=== PATIENT | male | born 1970 | race Caucasian/White ===

== ENCOUNTER 2017-09-16 09:11 | Outpatient (CLI) | payer OTHER ==
--- NOTE | 2017-09-17 13:26 | CARDIAC PROCEDURE NOTE ---
DATE OF SERVICE: 09/16/2017 Physician: FERNANDO WeberP DATE OF SERVICE: 09/16/2017 PRIMARY CARE PROVIDER: Gallo Diaz MD; [facility]. PROCEDURE: Stress echocardiogram. PROCEDURAL SYMPTOMS: Exertional chest pain. CARDIAC RISK FACTORS INCLUDE: Age. PREVIOUS CARDIAC PROCEDURES: 2014 normal nuclear stress test. CURRENT SYMPTOMATOLOGY: None. CLINICAL HISTORY: A 47-year-old man without known coronary artery disease. INITIAL RESTING VITAL SIGNS: Blood pressure 132/96, heart rate 73, height 73 inches, weight 225 pounds. PROCEDURE AND FINDINGS: The patient's identity and date were verified, consent signed. After resting echocardiogram images were obtained, the patient performed treadmill exercise using a Hubert protocol, completing 10 minutes 18 seconds and an estimated workload of 12.9 metabolic equivalents. Maximal blood pressure was 178/78 with a heart rate of 176 beats per minute or 102% of maximum predicted heart rate for age. The blood pressure response to exercise was within normal limits. The patient stopped because he rated exercise as 18/ 20, and the target heart rate was achieved. The resting ECG demonstrated normal sinus rhythm with repolarization abnormality. There was less than 0.[address]- segment depression and no ectopy. Post-exercise images were obtained immediately on cessation of exercise. FINAL IMPRESSION 1. No ECG signs of ischemia, test incomplete, awaiting echocardiographic report. 2. Negative stress test clinically for angina. 3. No ectopy. TD: 09/16/2017 13:16 MTDD
[2017-09-22 16:50] VITALS: BP 132/96
== END 2017-09-16 09:12 | disposition home or self-care (01) ==
LOC: DI 09:11
PROVIDERS: ATTEND Family Medicine
DX: R07.9 Chest pain, unspecified (principal)
CPT/HCPCS: 93351

== ENCOUNTER 2018-11-09 12:23 | Emergency (ER) | payer OTHER ==
[2018-11-09 12:39] VITALS: BP 135/87
--- NOTE | 2018-11-09 13:34 | ED Physician Documentation ---
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 Mild runny nose and cough. Feels like the flu he had last year. He has no comorbidities.) Review of Systems Constitutional: reports: Fever, Chills, Myalgias, Fatigue Ears: denies: Ear pain Nose: reports: Rhinorrhea / runny nose Throat: denies: Sore throat PD PAST MEDICAL HISTORY - Past Medical History Past Medical History: No Cardiovascular: None Respiratory: None Neuro: None Endocrine/Autoimmune: None GI: None : None HEENT: None Psych: None Musculoskeletal: None Derm: None - Past Surgical History Past Surgical History: No - Present Medications Home Medications: Ambulatory Orders Medication Instructions Recorded Confirmed Hydrocodone/Acetaminophen 1 - 2 each PO Q6H PRN #14 tablet 11/09/18 [Hydrocodon-Acetaminophen 5-325] Ibuprofen [Motrin] 800 mg PO Q8H PRN #30 tablet 11/09/18 Oseltamivir [Tamiflu] 75 mg PO BID #10 capsule 11/09/18 - Allergies Allergies/Adverse Reactions: Allergies Allergy/AdvReac Type Severity Reaction Status Date / Time No Known Drug Allergies Allergy Verified 11/09/18 12:39 - Social History Does the pt smoke?: No Smoking Status: Never smoker Does the pt drink ETOH?: No Does the pt have substance abuse?: No - Immunizations Immunizations are current?: Yes - POLST Patient has POLST: No PD ED PE NORMAL - Vitals Vital signs reviewed: Yes - General General: Alert and oriented X 3, No acute distress - HEENT HEENT: Ears normal, Pharynx benign - Neck Neck: Supple, no meningeal sign, No bony TTP - Cardiac Cardiac: RRR, No murmur - Respiratory Respiratory: No respiratory distress, Clear bilaterally - Abdomen Abdomen: Non tender - Derm Derm: No rash - Neuro Neuro: Alert and oriented X 3, Normal speech Results - Vitals Vitals: Vital Signs - 24 hr 11/09/18 12:36 Temperature 37.7 C H Heart Rate 87 Respiratory 14 Rate Blood Pressure 135/87 H O2 Saturation 97 Oxygen O2 Source Room air - Labs Labs: Laboratory Tests 11/09/18 12:40 Influenza A (Rapid) POSITIVE H Influenza B (Rapid) Negative PD MEDICAL DECISION MAKING - ED course ED course: 48-year-old gentleman with influenza A within the treatment window for potential Tamiflu. We discussed the potential risks and benefits including the risks of neuropsychiatric side effects, and after discussion he would like to go ahead with it. Departure - Departure Disposition: 01 Home, Self Care Clinical Impression: Influenza A Condition: Good Record reviewed to determine appropriate education?: Yes Instructions: ED Flu, Medication: Tamiflu (Oseltamivir) Prescriptions: Hydrocodone/Acetaminophen [Hydrocodon-Acetaminophen 5-325] 1 - 2 each PO Q6H PRN #14 tablet PRN Reason: pain Ibuprofen [Motrin] 800 mg PO Q8H PRN #30 tablet PRN Reason: PAIN &/OR FEVER Oseltamivir [Tamiflu] 75 mg PO BID #10 capsule Comments: Return in 3 days if not better, anytime for new or worsening symptoms. Your blood pressure was elevated today on check into the emergency department. This does not mean that you have hypertension, it is a common phenomenon to come to the emergency department and have elevated blood pressure. I recommend that you see your primary care physician within the week to have it rechecked when you are feeling better. Forms: Activity restrictions
== END 2018-11-09 13:41 | disposition home or self-care (01) ==
LOC: ED 12:23
DX: J10.1 Influenza due to other identified influenza virus with other respiratory manifestations (principal); R03.0 Elevated blood-pressure reading, without diagnosis of hypertension
CPT/HCPCS: 87275; 87276; 99283

== ENCOUNTER 2021-01-20 19:19 | Outpatient (CLI) | payer BC | END 2021-01-20 19:20 | disposition short-term general hospital (02) | LOC: EMS 19:19 | DX: R00.2 Palpitations (principal); R55 Syncope and collapse | CPT/HCPCS: A0425; A0429 ==